=== PATIENT | female | born 1990 ===

== ENCOUNTER 2019-03-05 12:20 | Outpatient (CLI) | payer SELFPAY ==
[~2019-03-05] VITALS: Ht 157.5 cm; Wt 87.9 kg
--- NOTE | 2019-03-05 12:03 | NUR ---
SUKH DOVE presented to unit via amb from DR. CROWELL'S OFFICE with c/o C/O CONTRACTIONS,HX OF PRE-TERM LABOR. SUKH DOVE weighed, gowned, voided, and to bed. EFHM and TOCO applied, VS taken. SUKH DOVE oriented to bed controls, call light, TV, heat, and A/C controls.
[2019-03-05 12:18] VITALS: BP 126/66
[2019-03-05 12:30] VITALS: BP 126/66
[2019-03-05 13:01] VITALS: BP 111/66
[2019-03-05 13:06] LABS: BILIRUBIN,URINE NEGATIVE (NEGATIVE); CLARITY,URINE CLEAR; COLOR,URINE YELLOW; GLUCOSE, URINE (UA) NEGATIVE (NEGATIVE); KETONES,URINE NEGATIVE (NEGATIVE); LEUKOCYTE ESTERASE ,URINE 1+ (NEGATIVE); NITRITE,URINE NEGATIVE (NEGATIVE); PROTEIN,URINE NEGATIVE (NEGATIVE)
[2019-03-05] MEDS ORDERED: PREN1TAB79 PO ×2 (13:07)
[2019-03-05] MEDS ORDERED: FAMO-119 PO ×2 (13:07)
[2019-03-05 13:19] LABS: WBC,URINE 0-2 /HPF
[2019-03-05 13:20] LABS: AMORPHOUS SEDIMENT,UR RARE AMOR PHOSPHATE /LPF; BACTERIA,URINE MODERATE /HPF; SQUAMOUS EPITHELIAL CELL,UR 0-2 /HPF
[2019-03-05] MEDS ORDERED: LACTATED RINGERS 1,000 ML IV SCH ×2 (14:30)
--- NOTE | 2019-03-05 14:45 | NUR ---
DR. CROWELL NOTIFIED OF CERVICAL EXAM AND UA RESULTS.
--- NOTE | 2019-03-05 15:00 | NUR ---
ORDER TO ALLOW PT TO EAT. SANDWICH TRAY SERVED.
--- NOTE | 2019-03-05 15:20 | NUR ---
MONITOR TRACING SENT TO DR. CROWELL.
--- NOTE | 2019-03-05 15:41 | Diagnostic Imaging Report ---
INDICATION: Contractions and fundal height discrepancy. TECHNIQUE: Multiple real-time grayscale images were obtained over the gravid uterus. COMPARISON: None. FINDINGS: There is a single live fetus in a cephalic presentation. heart rate was recorded at 143 BPM. Placenta is anterior. Amniotic fluid volume is normal. No gross abnormalities are seen. Biometrical measurements are as follows: Biparietal 7.86 cm, age 31 weeks 4 days. Head circumference 29.27 cm, age 32 weeks 3 days. Abdominal circumference 27.13 cm, age 31 weeks 2 days. Femur length 5.91 cm, age 30 weeks 6 days. Sonographic estimate age: 31 weeks 4 days. Sonographic estimated date of delivery: 05/03/2019. Estimated Weight: 1725 gm (+/- 252 gm). LMP percentile: 98%. heart rate: 143 beats per minute. number: 1 of 1. IMPRESSION: Single live IUP of 31 to 32 weeks gestational age with estimated date of confinement sonographically of 05/03/2019. Dictated by: Dictated on workstation # [id number]
[2019-03-05 16:50] VITALS: BP 111/56
--- NOTE | 2019-03-05 17:09 | NUR ---
CALLED DR. CROWELL WITH UPDATE REGARDING DECREASE IN CONTRACTIONS AND CERVICAL EXAM UNCHANGED. ORDERS RECEIVED FOR BETAMETHASONE, AMPICILLIN RX FOR UTI, AND DISCHARGE. PLAN OF CARE REVIEWED WITH PT.
[2019-03-05] MEDS ORDERED: BETAMETHASONE ACE/NA PHOS 6 MG/ML (CELESTONE SOLUSPAN) ONE (17:17)
--- NOTE | 2019-03-05 17:20 | NUR ---
IV D/C'ED. SITE CLEAR.
--- NOTE | 2019-03-05 17:27 | NUR ---
BETAMETHASONE 12 MG IM IN RIGHT VG SITE. SITE CLEAR. PT HAS TO CALL FOR A RIDE HOME.
[2019-03-05] MEDS ORDERED: BETAMETHASONE ACE/NA PHOS 6 MG/ML (CELESTONE SOLUSPAN) IM SCH ×2 (17:30)
[2019-03-05] MEDS ORDERED: AMOX500C2 PO ×2 (17:37)
--- NOTE | 2019-03-05 18:15 | NUR ---
DISCHARGE INSTRUCTIONS REVIEWED WITH COPY TO PT. RX CALLED TO [facility] FOR AMPICILLIN. STATES UNDERSTANDING OF ALL INSTRUCTIONS AND NEED TO F/U TOMORROW FOR SECOND BETAMETHASONE SHOT.
[2019-03-05 18:45] VITALS: BP 111/56
--- NOTE | 2019-03-05 18:45 | NUR ---
DISMISSED AMB FROM [facility] IN STABLE CONDITION ACC BY SPOUSE.
--- NOTE | 2019-03-08 08:03 | Physician Query-Final Dx ---
Clinic Account Progress/Dx Physician Query: Please give diagnosis Please include # weeks gestation Date of Service Mar 05, 2019 at 12:20 JOYCE JARRETT Mar 08, 2019 08:02
== END 2019-03-05 18:45 | disposition home or self-care (01) ==
LOC: WSo 12:20 → LDRP 12:22 → WSo 18:45
PROVIDERS: ATTEND Family Medicine
DX: O62.9 Abnormality of forces of labor, unspecified (principal); O26.893 Other specified pregnancy related conditions, third trimester; Z3A.31 31 weeks gestation of pregnancy
CPT/HCPCS: 76805; 81000; 87088; 96360; 96361; 96372; 99214

== ENCOUNTER 2019-03-06 17:18 | Outpatient (CLI) | payer SELFPAY ==
--- NOTE | 2019-03-06 17:00 | NUR ---
Pt ambulates to unit for repeat steroid shot as ordered by Dr Julio yesterday. To waiting room at this time. Rn registering pt to ED
[~2019-03-06 17:18] MED LIST: AMOX500C2 PO; FAMO-119 PO; PREN1TAB79 PO
[2019-03-06] MEDS ORDERED: BETAMETHASONE ACE/NA PHOS 6 MG/ML (CELESTONE SOLUSPAN) ONE (17:28)
--- NOTE | 2019-03-06 17:35 | NUR ---
Pt to room 315. 1737 shot given see emar
--- NOTE | 2019-03-06 17:40 | NUR ---
Pt ambulates self off unit to private vehicle with belongings in hand.
[2019-03-07] MEDS ORDERED: BETAMETHASONE ACE/NA PHOS 6 MG/ML (CELESTONE SOLUSPAN) IM SCH (09:00)
== END 2019-03-06 17:40 | disposition home or self-care (01) ==
LOC: WSo 17:18
PROVIDERS: ATTEND Family Medicine
DX: O99.89 Other specified diseases and conditions complicating pregnancy, childbirth and the puerperium (principal); Z3A.00 Weeks of gestation of pregnancy not specified
CPT/HCPCS: 96372

== ENCOUNTER 2019-04-26 10:24 | Outpatient (CLI) | payer SELFPAY ==
[~2019-04-26] VITALS: Ht 157 cm; Wt 92.0 kg
--- NOTE | 2019-04-26 10:09 | NUR ---
SUKH DOVE presented to unit via ambulatory from home, accompanied by , with c/o CONTRACTIONS. SUKH DOVE weighed, gowned, voided, and to bed. EFHM and TOCO applied, VS taken. SUKH DOVE oriented to bed controls, call light, TV, heat, and A/C controls.
[2019-04-26 10:43] LABS: BILIRUBIN,URINE NEGATIVE (NEGATIVE); CLARITY,URINE CLEAR; COLOR,URINE YELLOW; GLUCOSE, URINE (UA) NEGATIVE (NEGATIVE); KETONES,URINE NEGATIVE (NEGATIVE); LEUKOCYTE ESTERASE ,URINE 1+ (NEGATIVE); NITRITE,URINE NEGATIVE (NEGATIVE); PH,URINE 6.5 (5-9); PROTEIN,URINE NEGATIVE (NEGATIVE)
[2019-04-26 10:51] VITALS: BP 119/73
[2019-04-26 10:53] LABS: BACTERIA,URINE FEW /HPF
[2019-04-26 11:00] VITALS: BP 119/73
[2019-04-26] MEDS ORDERED: METF-397 PO (12:08)
[2019-04-26 13:45] VITALS: BP 111/59
--- NOTE | 2019-04-26 15:20 | NUR ---
Dismissal instructions reviewed with patient. States understanding. Patient appears stable. Not in labor.
--- NOTE | 2019-04-26 15:25 | NUR ---
Dismissed ambulatory to home with at side, from labor/delivery unit. To return as needed. Follow up with Dr. Julio on Friday.
--- NOTE | 2019-04-27 08:27 | Physician Query-Final Dx ---
JOYCE JARRETT 04/27/19 0827: Clinic Account Progress/Dx Physician Query: Please give diagnosis Please include # weeks gestation Date of Service Apr 26, 2019 at 10:24 BRANDEN GUDINO DO 04/28/19 0838: Clinic Account Progress/Dx DIAGNOSIS: Diagnosis 37w6d contractions, not in active labor JOYCE JARRETT Apr 27, 2019 08:27 BRANDEN GUDINO DO Apr 28, 2019 08:38
== END 2019-04-26 15:25 | disposition home or self-care (01) ==
LOC: WSo 10:24 → LDRP 10:27 → WSo 15:25
PROVIDERS: ATTEND Family Medicine
DX: O62.9 Abnormality of forces of labor, unspecified (principal); Z3A.37 37 weeks gestation of pregnancy
CPT/HCPCS: 81000; 87088; 99213

== ENCOUNTER 2019-04-28 16:04 | Inpatient (IN) | payer OTHER ==
[2019-04-28] VITALS (21 sets, daily range): BP systolic 100–132; BP diastolic 53–77
--- NOTE | 2019-04-28 15:49 | NUR ---
SUKH DOVE presented to unit via ambulation, accompanied by family,for direct admit for labor. Pt. weighed, gowned, voided, and to bed. EFHM and TOCO applied, VS taken. Pt. oriented to bed controls, call light, TV, heat, and A/C controls.
[~2019-04-28 16:04] MED LIST changes: +METF-397 PO
[2019-04-28] MEDS ORDERED: NS IV 1000 ML 1,000 ML ONE (16:11)
[2019-04-28] MEDS ORDERED: NS IV 1000 ML 1,000 ML IV SCH (16:14)
--- NOTE | 2019-04-28 16:30 | NUR ---
report received from PRITI Rodas. care assumed of pt.
[2019-04-28 16:45] LABS: BASOPHILS % (AUTO) 0 % (0-10); EOSINOPHILS # (AUTO) 0.1 10^3/uL (0.0-0.3); EOSINOPHILS % (AUTO) 1 % (0-10); HEMATOCRIT 35 % (35-52); HEMOGLOBIN 11.1 G/DL (11.5-16.0); LYMPHOCYTES # (AUTO) 1.8 X 10^3 (1.0-4.0); LYMPHOCYTES % (AUTO) 24 % (12-44); MEAN CORPUSCULAR HEMOGLOBIN 25 PG (25-34); MEAN CORPUSCULAR HGB CONC 32 G/DL (32-36); MEAN CORPUSCULAR VOLUME 79 FL (80-99); MEAN PLATELET VOLUME 11.2 FL (7.4-10.4); MONOCYTES # (AUTO) 0.5 X 10^3 (0.0-1.0); MONOCYTES % (AUTO) 6 % (0-12); NEUTROPHILS # (AUTO) 5.1 X 10^3 (1.8-7.8); NEUTROPHILS % (AUTO) 69 % (42-75); PLATELET COUNT 295 10^3/uL (130-400); RED CELL DISTRIBUTION WIDTH 15.7 % (10.0-14.5); WHITE BLOOD COUNT 7.4 10^3/uL (4.3-11.0)
--- NOTE | 2019-04-28 17:29 | NUR ---
anesthesia notified of pt's request for epidural placement.
[2019-04-28] MEDS ORDERED: SUFENTA 0.6MCG/ML BUPIVA 0.125 100 ML ONE (17:42)
[2019-04-28] MEDS ORDERED: BUPIVACAINE 0.25% 30 ML (SENSORCAINE) VIAL ONE (17:56)
[2019-04-28] MEDS ORDERED: fentaNYL INJECTION 100 MCG/2 ML AMP ONE ×2 (17:56→19:43)
[2019-04-28] MEDS ORDERED: LACTATED RINGERS 1,000 ML IV SCH (18:37)
[2019-04-28] MEDS ORDERED: diphenhydrAMINE 50 MG/ML INJ (BENADRYL) IV PRN (18:45)
[2019-04-28] MEDS ORDERED: NALOXONE 0.4 MG/ML 1 ML (NARCAN) VIAL IV PRN ×2 (18:45)
[2019-04-28] MEDS ORDERED: METOCLOPRAMIDE INJ 10 MG/2 ML (REGLAN) IV PRN (18:45)
[2019-04-28] MEDS ORDERED: ONDANSETRON 4 MG/2 ML (SDV) Z0FRAN IV PRN (18:45)
[2019-04-28] MEDS ORDERED: EPIDURAL (SUFENTA 0.6MCG/ML BUPIVA 0.125%) 100 ML BAG EPI PRN (18:45)
--- NOTE | 2019-04-28 19:20 | NUR ---
RN at bedside for introduction from previous shift and to discuss POC.
--- NOTE | 2019-04-28 19:26 | History & Physical-OB ---
OB - Chief Complaint & HPI Date/Time Date of Admission: Date of Admission: Apr 28, 2019 at 16:04 Date seen by a Provider: Apr 28, 2019 Time Seen by a Provider: 18:45 Chief Complaint/History OB-Reason for Admission/Chief: Onset of Labor Hx : 2 Hx Para: 1101 Expected Date of Delivery: May 11, 2019 Gestational Age in Weeks: 38 Gestational Age in Days: 1 History of Labs AB positive, antibody neg. RPR neg. GBS neg. Allergies and Home Medications Allergies Coded Allergies: No Known Drug Allergies (Unverified , 03/05/19) Home Medications Famotidine 20 Mg Tablet, 20 MG PO BID, (Reported) Metformin HCl 500 Mg Tablet, 500 MG PO DAILY, (Reported) Vit W-Ca,Fe,FA(<1 mg) 1 Each Tablet, 1 EACH PO DAILY, (Reported) Patient Home Medication List Home Medication List Reviewed: Yes OB - History Hx of Present Care: Yes Ultrasounds: Normal mid trimester US Obstetrical Complications: Gestational Diabetes Other Concerns: GDMA2 on metformin, Weekly BPPs have been normal, BPP on 04/27 with DAVID 14 and EFW [id number]. Information Induced Hypertension: No Maternal Gestational Diabetes: Yes Hemorrhage: No Obstetrical History Hx : 3 Hx Para: 1 Hx # Term Pregnancies: 1 Hx # Pregnancies: 1 Number of Living Children: 1 Delivery History Hx Dystocia: No Hx Forceps Assisted Delivery: No Hx Vacuum Extraction Assisted: No Hx Placenta Abnormality: No Hx Distress: No Hx Large For Gestational Age I: No Hx Small for Gestational Age I: No Hx Section: No Hx Vaginal Delivery Post C-Sec: No Hx Blood Disorders: No Adverse Rxn to Tranfusion: No Patient Past Medical History PMHx: Asthma Depression SurgHx: Jaw surgery Social History/Family History HIV/AIDS: No Recent Infectious Disease Expo: No Sexually Transmitted Disease: No Alcohol Use: Denies Use Recreational Drug Use: No Smoking Cessation: Never smoker 2nd Hand Smoke Exposure: No Immunizations Tetanus Booster (TDap): Less than 5yrs Date of Influenza Vaccine: Jan 05, 2019 Rubella: unknown RPR/VDRL: Negative GBS Status: Negative HBsAG: Unknown OB - Admission Exam Physical Exam Vitals: Vital Signs 04/28/19 16:24 Temp 36.6 Pulse 114 Resp 20 B/P (MAP) 132/77 (95) Pulse Ox 98 O2 Delivery Room Air HEENT: NCAT Abdomen: Gravid Extremities: Edema (trace) Cervical Dilatation: 8cm Effacement: 50% Station: Ballotable Membranes: Intact Heart Rate: 140's Accelerations: Accelerations Present Decelerations: No Decelerations Short Term Variability: Present Contractions on Admission: < 5 Minutes Apart Date/Time Contractions Began;: 04/27 budget record clerk Frequency of Contractions: every 5 minutes Labs Laboratory Tests Test 04/28/19 16:08 04/28/19 17:51 Range/Units White Blood Count 7.4 4.3-11.0 10^3/uL Red Blood Count 4.42 4.35-5.85 10^6/uL Hemoglobin 11.1 L 11.5-16.0 G/DL Hematocrit 35 35-52 % Mean Corpuscular Volume 79 L 80-99 FL Mean Corpuscular Hemoglobin 25 25-34 PG Mean Corpuscular Hemoglobin Concent 32 32-36 G/DL Red Cell Distribution Width 15.7 H 10.0-14.5 % Platelet Count 295 130-400 10^3/uL Mean Platelet Volume 11.2 H 7.4-10.4 FL Neutrophils (%) (Auto) 69 42-75 % Lymphocytes (%) (Auto) 24 12-44 % Monocytes (%) (Auto) 6 0-12 % Eosinophils (%) (Auto) 1 0-10 % Basophils (%) (Auto) 0 0-10 % Neutrophils # (Auto) 5.1 1.8-7.8 X 10^3 Lymphocytes # (Auto) 1.8 1.0-4.0 X 10^3 Monocytes # (Auto) 0.5 0.0-1.0 X 10^3 Eosinophils # (Auto) 0.1 0.0-0.3 10^3/uL Basophils # (Auto) 0.0 0.0-0.1 10^3/uL Glucometer 99 70-110 MG/DL OB - Assessment/Plan/Diagnosis Assessment Assessment: active labor, other (GDMA2) Admission Dx Active labor at 38 weeks gestation GDMA2 Compound presentation- hand/vertex Admission Status: Inpatient Order (span 2 midnights) Reason for Inpatient Admission: Labor, delivery and course Plan Plan: Expectant Management Other Plan GDMA2- finger stick blood glucose in the 90s first two checks Compound presentation with hand/vertex- had spontaneous high rupture/leaking fluid after cervical exam, but remains with bulging bag and ballotable head, will sit up to encourage head descent and monitor closely. Residential Designer plant operations engineer notified. RUPERTO CROWELL MD Apr 28, 2019 19:25
--- NOTE | 2019-04-28 19:30 | NUR ---
1929-Tillman placed per RN. 1931-Dr. Julio in room to preform SVE. Initially hand presentation felt as verbalized per Then Cord felt below infants head. Verbalized per Dr. Julio. Pt. immediately placed into Trendelenburg position while Dr. Moctezuma hand remains in place holding pressure off of cord. Orders received to notify Dr. Hernandez. No distress noted on monitoring strip at this time. 1936-Dr. Julio communicated situation with Dr. hernandez via mobile phone held by this RN. Orders received to call crew in for STAT/emergent C section and to begin moving patient to OB OR. 1937-boat cleaning supervisor notified or need for STAT/emergent C Section. 1938-Verbal consent received for STAT/Emergent C section 1939-Pt. back to OB OR at this time. Dr. Julio remained on pt bed, preforming SVE to continue to hold pressure off cord. 1942-133 FHT Obtained per Doppler. Pre-Op meds given per this RN. 1941-Dianne GARCIA in OB OR at this time. 1943-135 FHT per Doppler. LR hung per OR tubing. 1945-Adrienne Ambrocio in OB OR at this time. 1947-Zulay Ren CRNA in OB OR at this time. 150 FHT per Doppler. 1949-Pt. prepped for surgery per Dr. Hernandez.
[2019-04-28] MEDS ORDERED: METOCLOPRAMIDE INJ 10 MG/2 ML (REGLAN) ONE (19:33)
[2019-04-28] MEDS ORDERED: CITRIC ACID/SOB CIT (BICITRA) 30 ML UDC ONE (19:33)
[2019-04-28] MEDS ORDERED: FAMOTIDINE 20MG/2ML IV (PEPCID) ONE (19:34)
[2019-04-28] MEDS ORDERED: KETAMINE/NaCl 50 MG/5 ML SYRINGE (ED ONLY) ONE (19:46)
[2019-04-28] MEDS ORDERED: OXYTOCIN PRE-MIX DRIP 500 ML IV ONE (19:47)
[2019-04-28] MEDS ORDERED: MIDAZOLAM 2 MG/2 ML (VERSED) VIAL ONE (19:51)
[2019-04-28] MEDS ORDERED: BUPIVACAINE 0.5% 30 ML (SENSORCAINE) VIAL ONE (20:18)
[2019-04-28] MEDS ORDERED: proPOfol 200 MG/20 ML (DIPRIVAN) VIAL IV ONE (20:19)
--- NOTE | 2019-04-28 20:20 | Labor Progress Note ---
Labor Progress Note Labor Progress Note Date Seen by Provider: Apr 28, 2019 Time Seen by Provider: 19:32 Subjective: Pt reported gush of fluid Objective: Cervical exam: /-3 Consistency: soft Position: anterior Presentation: compound, vertex and hand noted initially, hand moved to maternal right, when reassessing across vertex, noted prolapsed cord at maternal left heart tones: 135 beats per minute, moderate variability, no decels Tocometer: 2 ctx/10 minutes Assessment/Plan: Tracy Mason is a 28 /Para 3 / 1,Gestational Age (wks) 38 found to have cord prolapse at 1733, bed placed in head down position while I continued to elevate cord with my hand, nurse called Dr. Deleon at 1734 and immediately thereafter we called for STAT , while I remained with my hand supporting the cord until was delivered. Vitals - Labs Vital Signs - I&O Vital Signs Date Time Temp Pulse Resp B/P (MAP) Pulse Ox O2 Delivery O2 Flow Rate FiO2 04/28/19 16:24 36.6 114 20 132/77 (95) 98 Room Air 04/28/19 16:00 36.6 104 18 98 Room Air Labs Laboratory Tests 04/28/19 16:08: White Blood Count 7.4, Red Blood Count 4.42, Hemoglobin 11.1L, Hematocrit 35, Mean Corpuscular Volume 79L, Mean Corpuscular Hemoglobin 25, Mean Corpuscular Hemoglobin Concent 32, Red Cell Distribution Width 15.7H, Platelet Count 295, Mean Platelet Volume 11.2H, Neutrophils (%) (Auto) 69, Lymphocytes (%) (Auto) 24, Monocytes (%) (Auto) 6, Eosinophils (%) (Auto) 1, Basophils (%) (Auto) 0, Neutrophils # (Auto) 5.1, Lymphocytes # (Auto) 1.8, Monocytes # (Auto) 0.5, Eosinophils # (Auto) 0.1, Basophils # (Auto) 0.0 04/28/19 17:51: Glucometer 99 04/28/19 19:16: Glucometer 94 RUPERTO CROWELL MD Apr 28, 2019 20:20
[2019-04-28] MEDS ORDERED: D5 LR IV SOLUTION 1,000 ML IV SCH (20:23)
[2019-04-28] MEDS ORDERED: MEASLES,MUMPS,RUBELLA 1 EA INJ SC ONE (20:30)
[2019-04-28] MEDS ORDERED: TETANUS,DIPTH,PERTUSS P/F (BOOSTRIX) 0.5 ML VIAL IM ONE (20:30)
[2019-04-28] MEDS ORDERED: ONDANSETRON 4 MG/2 ML (SDV) Z0FRAN IVP PRN (20:30)
[2019-04-28] MEDS ORDERED: DEXAMETHASONE 10 MG/ML (DECADRON) 1 ML VIAL ONE (20:35)
--- NOTE | 2019-04-28 20:44 | Diagnostic Imaging Report ---
INDICATION: Emergency FINDINGS: Supine view of the abdomen demonstrates an object over the upper abdomen which was said to be external by the technologist. No other foreign bodies are present. IMPRESSION: Negative abdomen for foreign body. Dictated by: Dictated on workstation # [id number]
[2019-04-28] MEDS ORDERED: DOCUSATE SODIUM 100 MG (COLACE) CAP PO SCH (21:00)
[2019-04-28] MEDS: OXYTOCIN PRE-MIX DRIP 500 ML IV SCH (21:05)
[2019-04-28] MEDS ORDERED: CATHETER FLUSH 10 ML SYR IV SCH (22:00)
--- NOTE | 2019-04-28 22:00 | NUR ---
Pt. transferred to PP room 313 via bed, accompanied by staff. Pt. oriented to room, call light, and thermostat. SCDs applied and turned on, fresh ice water provided. PP folder given and explained. No questions or concerns voiced at this time. will continue to monitor.
[2019-04-28] MEDS: KETOROLAC 30 MG/ML VIAL IVP SCH (22:32)
[2019-04-28] MEDS: DOCUSATE SODIUM 100 MG (COLACE) CAP PO SCH (22:32)
[2019-04-28] MEDS ORDERED: FAMOTIDINE 20MG/2ML IV (PEPCID) IV ONE (23:45)
[2019-04-28] MEDS ORDERED: CITRIC ACID/SOB CIT (BICITRA) 30 ML UDC PO ONE (23:45)
[2019-04-28] MEDS ORDERED: METOCLOPRAMIDE INJ 10 MG/2 ML (REGLAN) IV ONE (23:45)
--- NOTE | 2019-04-29 01:30 | NUR ---
This RN assisted pt. up to bathroom. Pt. ambulated without difficulty with standby assist. Positive void noted.
[2019-04-29] MEDS: OXYTOCIN PRE-MIX DRIP 500 ML IV SCH (01:32)
--- NOTE | 2019-04-29 02:10 | NUR ---
Infant taken to nursery for bath at this time. Pt. ambulated to nursery to without difficulty.
--- NOTE | 2019-04-29 03:03 | OPERATIVE REPORT ---
DATE OF SERVICE: 04/28/2019 PREOPERATIVE DIAGNOSES: Term at 39 weeks' gestation in labor with prolapsed cord. POSTOPERATIVE DIAGNOSIS: Term at 39 weeks' gestation in labor with prolapsed cord. OPERATIVE PROCEDURE: Emergent primary low transverse delivery of a viable with Apgars of 9 and 10 at 1 and 5 minutes respectively, weight 7 pounds. Cord blood pH is pending. time of 1954, he is a male infant. OPERATIVE DESCRIPTION: With the patient in the supine position with Dr. Julio at the bedside elevating the head off of the prolapsed cord, the heart rate was being monitored continuously and was in the 130 to 140s. The patient had an epidural that was effective. Anesthesia was on hand, dose the epidural as we prepped and draped the patient. The epidural was satisfactory for the emergent . With the patient prepped and draped in the usual fashion for abdominal surgery, a Pfannenstiel incision made through skin with scalpel. The patient's abdomen entered in the usual manner. Bladder retractor placed in position. Clean scalpel used to make a 4 cm transverse lower uterine segment incision that was extended bluntly. Minimal fluid was released on hysterotomy. Acosta forceps were applied to facilitate the delivery of the male infant. The infant had Apgars and stats as noted above. The infant was bulb suctioned on delivery of the head and again on completion of delivery. Umbilical cord was doubly clamped and cut, and the passed to the pediatric nurse in attendance for delivery. Cord bloods were obtained. Placenta delivered spontaneously Cody. It was normal with a 3-vessel cord. The uterus was exteriorized and interior wiped clean with a wet laparotomy sponge. Uterine incision was then closed with running locked suture of 2-0 Vicryl. Hemostasis was complete. The uterus was returned to abdominal cavity. All blood clot and debris were removed from the abdominal cavity. Sponge and needle counts correct and hemostasis assured. Anterior parietal peritoneum was closed with running suture of 2-0 Vicryl. Rectus muscles were closed with that suture as well. The rectus fascia was closed with 2-0 Vicryl, subcutaneous tissue was closed with 2-0 Vicryl and the skin was stapled. An x-ray of the operative field was obtained prior to complete closure to ascertain whether any instruments or materials were left behind that was reported to be negative. Sponge and needle counts correct. Estimated blood loss was around 500 mL. The patient tolerated the procedure well and was transferred to recovery room in stable condition. The had remained near bedside with the father. Job ID: [id number] DocumentID: [id number] Dictated Date: 04/28/2019 20:31:05 Aemt Date: 04/29/2019 03:02:11 Dictated By: LILLIAM HAWKINS MD
[2019-04-29] MEDS: KETOROLAC 30 MG/ML VIAL IVP SCH (04:21)
[2019-04-29] MEDS: oxyCODONE/APAP 10/325MG (PERCOCET 10) TABLET PO PRN ×3 (04:24→20:37)
[2019-04-29 04:25] VITALS: BP 108/64
[2019-04-29] MEDS: IBUPROFEN 800 MG (MOTRIN) TAB PO SCH ×4 (05:04→23:17)
--- NOTE | 2019-04-29 08:01 | Progress Note ---
Standard Progress Note Progress Notes/Assess & Plan Date Seen by a Provider: Apr 29, 2019 Time Seen by a Provider: 08:00 Progress/Assessment & Plan This patient is without complaint. She is ambulating, voiding, tolerating oral intake well has good pain control. Patient denies chest pain, denies shortness of breath, denies nausea vomiting, and denies headache. Vital Signs Date Time Temp Pulse Resp B/P (MAP) Pulse Ox O2 Delivery O2 Flow Rate FiO2 04/29/19 04:25 36.3 81 16 108/64 (79) 99 Room Air 04/28/19 23:30 36.4 77 16 107/65 (79) 99 Room Air 04/28/19 22:40 36.2 82 16 107/72 (84) 98 Room Air 04/28/19 22:10 36.0 80 16 102/66 (78) 98 Room Air 04/28/19 21:45 Room Air 04/28/19 21:45 35.9 20 100/72 (81) 96 Room Air 04/28/19 21:30 Room Air 04/28/19 21:30 35.9 16 107/63 (78) 96 Room Air 04/28/19 21:15 Room Air 04/28/19 21:15 35.4 16 110/76 (87) 97 Room Air 04/28/19 21:00 Room Air 04/28/19 21:00 36.3 14 102/70 (81) 97 Room Air 04/28/19 19:30 86 18 110/62 (78) 100 Room Air 04/28/19 19:15 104 18 101/57 (72) 99 Room Air 04/28/19 19:00 99 18 104/53 (70) 99 Room Air 04/28/19 18:45 102 18 111/61 (78) 100 Room Air 04/28/19 18:35 96 18 114/63 (80) 100 Room Air 04/28/19 18:30 93 18 110/59 (76) 98 Room Air 04/28/19 18:25 90 18 112/63 (79) 98 Room Air 04/28/19 18:20 95 18 116/64 (81) 98 Room Air 04/28/19 18:15 85 18 118/61 (80) 98 Room Air 04/28/19 18:10 97 18 120/64 (82) 98 Room Air 04/28/19 18:05 86 18 127/56 (79) 98 Room Air 04/28/19 17:51 80 18 112/68 (83) Room Air 04/28/19 16:24 36.6 114 20 132/77 (95) 98 Room Air 04/28/19 16:00 36.6 104 18 98 Room Air I & O 04/29/19 07:00 Intake Total 1300 ml Output Total 850 ml Balance 450 ml Vital signs are stable. Patient is afebrile. The abdomen is benign. The fundus is firm below the umbilicus and nontender. The surgical incision is clean dry and intact. Extremities show no clubbing or cyanosis. There is no Homans sign. Assessment and plan postoperative day number 1 status post primary delivery performed emergently due to prolapsed umbilical cord. Patient is doing well and will have routine convalescence care. LILLIAM HAWKINS MD Apr 29, 2019 08:01
[2019-04-29] MEDS ORDERED: IBUP-1780 PO (08:03)
[2019-04-29] MEDS ORDERED: DCS100C PO (08:03)
[2019-04-29] MEDS ORDERED: OXYC1TAB12 PO (08:03)
--- NOTE | 2019-04-29 08:04 | Discharge Inst-Surgical ---
Discharge Inst-Surgical Depart Medication/Instructions New, Converted or Re-Newed RX: RX on Chart Consults/Follow Up Patient Instructions: As directed Orders & Referrals Follow Up Appt: RTC with me on Tuesday, April 30, 2019 at 930 a.m. or on Friday, May 03, 2019 between 8 a.m. at 4 p.m. for incision check. Call to make follow up appt. for patient in [address] Julio Wound Care: Remove sruthi, apply benzoin and steri strips. Activity Per routine post instructions. Please call in RX to patient pharmacy. Diet as tolerated Patient may shower or tub bathe as desired. Continue home meds Activity Activity as Tolerated: No Diet Discharge Diet: No Restrictions LILLIAM HAWKINS MD Apr 29, 2019 08:04
[2019-04-29] MEDS: DOCUSATE SODIUM 100 MG (COLACE) CAP PO SCH ×2 (08:15→19:49)
--- NOTE | 2019-04-29 08:15 | NUR ---
initial shift assessment completed, see interventions for further. abd incision GEMMA with sruthi D/I. POC reviewed, states understanding.
--- NOTE | 2019-04-29 09:30 | NUR ---
ambulating in hallways with @ side.
--- NOTE | 2019-04-29 10:40 | NUR ---
up to shower.
[2019-04-29 13:45] VITALS: BP 113/56
--- NOTE | 2019-04-29 14:40 | Anesthesia-Regional Post-Op ---
Regional Patient Condition Mental Status: Alert, Oriented x3 Circulation: Same as Pre-Op Headache: Absent Sensation: Full Recovery Motor Block: Absent Post Op Complications Complications None Follow Up Care/Instructions Patient Instructions None needed. Anesthesia/Patient Condition Patient is doing well, no complaints, stable vital signs, no apparent adverse anesthesia problems. CHULA CHINCHILLA DO Apr 29, 2019 14:40
[2019-04-29 17:18] VITALS: BP 106/51
--- NOTE | 2019-04-29 17:21 | NUR ---
ambulating in hallways with s/o @ side
[2019-04-29] MEDS ORDERED: SIMETHICONE 80 MG (MYLICON) CHEW PO SCH (19:00)
--- NOTE | 2019-04-29 19:15 | NUR ---
report given to next shift.
--- NOTE | 2019-04-29 19:58 | NUR ---
pt resting in bed. assessment completed. pt denies any needs at this time. will continue to monitor.
[2019-04-29 21:00] VITALS: BP 105/59
[2019-04-30 01:30] VITALS: BP 102/56
[2019-04-30] MEDS: oxyCODONE/APAP 10/325MG (PERCOCET 10) TABLET PO PRN ×2 (01:58→12:26)
[2019-04-30] MEDS: IBUPROFEN 800 MG (MOTRIN) TAB PO SCH ×2 (05:15→12:26)
--- NOTE | 2019-04-30 07:56 | Progress Note ---
Standard Progress Note Progress Notes/Assess & Plan Date Seen by a Provider: Apr 30, 2019 Time Seen by a Provider: 07:55 Progress/Assessment & Plan This patient is without complaint. She is ambulating, voiding, tolerating oral intake well has good pain control. Patient denies chest pain, denies shortness of breath, denies nausea vomiting, and denies headache. Vital Signs Date Time Temp Pulse Resp B/P (MAP) Pulse Ox O2 Delivery O2 Flow Rate FiO2 04/29/19 04:25 36.3 81 16 108/64 (79) 99 Room Air 04/28/19 23:30 36.4 77 16 107/65 (79) 99 Room Air 04/28/19 22:40 36.2 82 16 107/72 (84) 98 Room Air 04/28/19 22:10 36.0 80 16 102/66 (78) 98 Room Air 04/28/19 21:45 Room Air 04/28/19 21:45 35.9 20 100/72 (81) 96 Room Air 04/28/19 21:30 Room Air 04/28/19 21:30 35.9 16 107/63 (78) 96 Room Air 04/28/19 21:15 Room Air 04/28/19 21:15 35.4 16 110/76 (87) 97 Room Air 04/28/19 21:00 Room Air 04/28/19 21:00 36.3 14 102/70 (81) 97 Room Air 04/28/19 19:30 86 18 110/62 (78) 100 Room Air 04/28/19 19:15 104 18 101/57 (72) 99 Room Air 04/28/19 19:00 99 18 104/53 (70) 99 Room Air 04/28/19 18:45 102 18 111/61 (78) 100 Room Air 04/28/19 18:35 96 18 114/63 (80) 100 Room Air 04/28/19 18:30 93 18 110/59 (76) 98 Room Air 04/28/19 18:25 90 18 112/63 (79) 98 Room Air 04/28/19 18:20 95 18 116/64 (81) 98 Room Air 04/28/19 18:15 85 18 118/61 (80) 98 Room Air 04/28/19 18:10 97 18 120/64 (82) 98 Room Air 04/28/19 18:05 86 18 127/56 (79) 98 Room Air 04/28/19 17:51 80 18 112/68 (83) Room Air 04/28/19 16:24 36.6 114 20 132/77 (95) 98 Room Air 04/28/19 16:00 36.6 104 18 98 Room Air I & O 04/29/19 07:00 Intake Total 1300 ml Output Total 850 ml Balance 450 ml Vital signs are stable. Patient is afebrile. The abdomen is benign. The fundus is firm below the umbilicus and nontender. The surgical incision is clean dry and intact. Extremities show no clubbing or cyanosis. There is no Homans sign. Assessment and plan postoperative day number 1 status post primary delivery performed emergently due to prolapsed umbilical cord. Patient is doing well and will have routine convalescence care. April 30, 2019 Patient is without complaints she is ambulating, voiding, tolerating oral intake well has good pain control. Patient is requesting discharge home. Vital Signs Date Time Temp Pulse Resp B/P (MAP) Pulse Ox O2 Delivery O2 Flow Rate FiO2 04/30/19 01:30 36.5 85 18 102/56 (71) 95 Room Air 04/29/19 21:00 36.5 80 16 105/59 (74) 97 Room Air 04/29/19 17:18 36.6 93 16 106/51 (69) 97 Room Air 04/29/19 13:45 36.6 75 16 113/56 (75) 94 Room Air Vital signs are stable. Patient is afebrile. Fundus is firm below the umbilicus and nontender. The surgical incision is clean dry and intact. Extremities show clubbing cyanosis. There is no Homans sign. Assessment and plan postoperative day number 2 status post primary delivery doing well. Plan is for discharge home with follow-up in clinic Final Diagnosis 39 week primary delivery LILLIAM HAWKINS MD Apr 30, 2019 07:56
[2019-04-30] MEDS ORDERED: OXYC1TAB12 PO (07:57)
[2019-04-30 08:15] VITALS: BP 114/56
[2019-04-30] MEDS: DOCUSATE SODIUM 100 MG (COLACE) CAP PO SCH (09:30)
--- NOTE | 2019-04-30 10:25 | NUR ---
sruthi dc's, benzoin and steri strips applied. am care supplies to room for pt to shower
--- NOTE | 2019-04-30 12:25 | NUR ---
Discharge instructions explained, signed and copy to patient. pt verbalized understanding of instructions and denied questions.
--- NOTE | 2019-04-30 12:44 | NUR ---
prescriptions called to pharmacy
--- NOTE | 2019-04-30 13:00 | NUR ---
Discharged to home with belongings. Ambulates self downstairs to private vehicle with belongings in hand.
--- OUTSIDE RECORDS SUMMARY | 2019-04-30 16:58 | XMS REPORT ---
Author Author Tracy HOWARD Organization [facility] Address [address] [place] [address] Care Team Providers Care Animal Caregiver Name Role Phone MARIYA HOWARD Unavailable PROBLEMS Type Condition ICD9-CM Code EOZ82-TF Code Onset Dates Condition S tatus SNOMED Code Problem Rhinitis, unspecified type J31.0 Act shabnam 06107223 Problem Rhinitis, unspecified type J31.0 Act shabnam [id number] ALLERGIES No Information ENCOUNTERS Encounter Location Date Diagnosis [facility] [id number] [place] [address] Feb, [address] [id number] Feb, Abnormal glucose affecting O99 .810 [facility] [address] [id number] [place] [address] Feb, Abnormal glucose affecting O99 .[address] [id number] Feb, Vaginal candidiasis B37.[address] [id number] Feb, Third trimester Z34.93 ; 28 we eks gestation of Z3A.28 ; Vaginal candidiasis B37.3 and Encounter for immunization Z23 [facility] [address] [facility] [place] [id number] Jan, [facility] [address] [facility] [place] [id number] Jan, Second trimester Z34.92 ; 26 weeks gestation of Z3A.26 and History of delivery, currently O09.219 [facility] [address] [facility] [id number] [place] [address] Jan, Frequency of urination R35.0 [facility] [address] [id number] [id number] Dec, Rhinitis, unspecified type J31.0 and Sor e throat J02.9 [facility] [address] [facility] [place] [id number] Aug, [facility] [id number] [place] [id number] Apr, Acne vulgaris L70.0 [address] [facility] [address] [id number] [id number] Jul, Sinusitis 473.9 and History of asthma V1 2.69 [facility] [address] [address] May, [facility] [address] [address] May, [facility] [address] [address] Jul, [facility] [address] [address] Jul, [facility] [address] [address] Feb, [facility] [address] [address] Feb, [facility] [address] [address] Feb, [facility] [address] [address] Feb, [facility] [address] [address] Feb, [facility] [address] [address] Feb, [facility] [address] [address] Feb, [facility] [address] [id number] [place] [address] Feb, [facility] [address] [id number] [place] [address] June, [facility] [address] [id number] [place] [address] May, [facility] [address] [id number] [place] [address] Apr, [facility] [address] [id number] [place] [address] Dec, [facility] [id number] [place] [address] Dec, [facility] [address] [id number] [place] [address] Dec, IMMUNIZATIONS No Known Immunizations SOCIAL HISTORY Never Assessed REASON FOR VISIT PLAN OF CARE VITAL SIGNS Height 62 in 2013-08-16 Weight 170.6 lbs 2013-08-16 Temperature 98.9 degrees Fahrenheit 2013-08-16 Heart Rate 88 bpm 2013-08-16 Respiratory Rate 18 2013-08-16 Blood pressure systolic 115 mmHg 2013-08-16 Blood pressure diastolic 74 mmHg 2013-08-16 MEDICATIONS Unknown Medications RESULTS No Results PROCEDURES No Known procedures INSTRUCTIONS MEDICATIONS ADMINISTERED No Known Medications MEDICAL (GENERAL) HISTORY Type Description Date Medical History asthma Surgical History double jaw repair 10/2016
--- OUTSIDE RECORDS SUMMARY | 2019-04-30 16:58 | XMS REPORT ---
Author Author Tracy Duggan Doctor Organization [facility] Address Unknown Phone Unavailable Care Team Providers Care Mainspring Former Arbor End Name Role Phone Migration, Doctor Unavailable Unavailable PROBLEMS Type Condition ICD9-CM Code RHI26-RO Code Onset Dates Condition S tatus SNOMED Code Problem Screening examination for venereal disease V74.5 Active 277900139 Problem Leukorrhea, not specified as infective 623.5 Active 663712151 Problem Urinary tract infection, site not specified 599.0 Active 39902036 Problem Counseling on other sexually transmitted diseases V65.45 Active 792460697 Problem Family history of diabetes mellitus V18.0 Active 276591998 Problem Headache 784.0 Active 22637758 Problem Other specified disease of hair and hair follicles 704.8 Active 729034283 ALLERGIES No Information ENCOUNTERS Encounter Location Date Diagnosis [address] [id number] [id number] Apr, Acne vulgaris L70.[address] [id number] [id number] Jul, Sinusitis 473.9 and History of asthma V1 2.69 [facility] [address] [facility] [id number] [address] [place] [address] May, [facility] [address] [facility] [id number] [address] [place] [address] May, [facility] [address] [facility] [id number] [address] [place] [address] Jul, [facility] [address] [facility] [id number] [address] [place] [address] Jul, [facility] [address] [facility] [id number] [address] [place] [address] Feb, [facility] [address] [facility] [id number] [address] [place] [address] Feb, [facility] [address] [id number] [address] [place] [address] Feb, [facility] [address] [id number] [address] [place] [address] Feb, [facility] [address] [id number] [address] [place] [address] Feb, [facility] [address] [id number] [address] [place] [address] Feb, [facility] [address] [id number] [address] [place] [address] Feb, [facility] [address] [id number] [address] [place] [address] Feb, [facility] [address] [id number] [address] [place] [address] June, [facility] [address] [id number] [address] [place] [address] May, [facility] [address] [id number] [address] [place] [address] Apr, [facility] [address] [id number] [address] [place] [address] Dec, [facility] [address] [id number] [address] [place] [address] Dec, [facility] [address] [id number] [address] [place] [phone] Dec, IMMUNIZATIONS No Known Immunizations SOCIAL HISTORY Never Assessed REASON FOR VISIT EMR-[facility] PLAN OF CARE VITAL SIGNS MEDICATIONS No Known Medications RESULTS No Results PROCEDURES No Known procedures INSTRUCTIONS MEDICATIONS ADMINISTERED No Known Medications MEDICAL (GENERAL) HISTORY Type Description Date Medical History asthma
--- OUTSIDE RECORDS SUMMARY | 2019-04-30 16:58 | XMS REPORT | Continuity of Care Document ---
Author Organization Unknown Address Unknown Phone Unavailable Allergies Active Description Code Type Severity Reaction Onset Reported/Identified Relationship to Patient Clinical Status Yes No Known Drug Allergies [id number] Drug Allergy Unknown N/A 03/05/2019 Medications There is no data. Problems Date Dx Coded Attending Type Code Diagnosis Diagnosed By 03/05/2019 RUPERTO CROWELL MD, Ot O26.893 OT RELATED CONDITIONS, THIRD 03/05/2019 RUPERTO CROWELL MD Ot O62 .9 ABNORMALITY OF FORCES OF LABOR, UNSPECIF 03/05/2019 RUPERTO CROWELL MD Ot Z3A.31 31 WEEKS GESTATION OF 03/06/2019 RUPERTO CROWELL MD Ot O99.89 OT DISEASES AND CONDITIONS COMPL PREG/C 03/06/2019 RUPERTO CROWELL MD Ot Z3A.00 WEEKS OF GESTATION OF NOT SPEC 03/09/2019 RUPERTO CROWELL MD Ot O26.893 OT RELATED CONDITIONS, THIRD 03/09/2019 RUPERTO CROWELL MD Ot O62 .9 ABNORMALITY OF FORCES OF LABOR, UNSPECIF 03/09/2019 RUPERTO CROWELL MD Ot Z3A.31 31 WEEKS GESTATION OF 03/09/2019 RUPERTO CROWELL MD Ot O99.89 OT DISEASES AND CONDITIONS COMPL PREG/C 03/09/2019 RUPERTO CROWELL MD Ot Z3A.00 WEEKS OF GESTATION OF NOT SPEC 04/26/2019 BRANDEN GUDINO DO Ot O62.9 ABNORMALITY OF FORCES OF LABOR, UNSPECIF 04/26/2019 BRANDEN GUDINO DO Ot Z3A.37 37 WEEKS GESTATION OF Procedures There is no data. Results Test Result Range CULTURE, GENITAL - 02/05/19 00:00 CULTURE, GENITAL SEE NOTE NRG GC/CHLAMYDIA (SWAB OR URINE)-RAPID - 19:00 CHLAMYDIA TRACHOMATIS RNA, TMA NOT DETECTED NOT DETECTED NEISSERIA GONORRHOEAE RNA, TMA NOT DETECTED NOT DETECTED COMMENT NRG SUREPATH PAP RFX HPV mRNA E6/E7 - 19:00 CLINICAL INFORMATION: NRG LMP: 08/05/18 NRG PREV. PAP: NRG PREV. BX: NRG SOURCE: Cervix NRG STATEMENT OF ADEQUACY: NRG INTERPRETATION/RESULT: NRG ENDOSCOPY TECHNICAN: NRG COMMENT NRG GLUCOSE JJ 1 HOUR - 02/19/19 10:49 GLUCOSE, POSTPRANDIAL/ 1 HOUR 168 mg/dL See Note: CBC - 02/19/19 10:49 WHITE BLOOD CELL COUNT 7.0 Thousand/uL 3 .8-10.8 RED BLOOD CELL COUNT 4.22 Million/uL 3.8 0-5.10 HEMOGLOBIN 11.6 g/dL 11.7-15.5 HEMATOCRIT 35.2 % 35.0-45.0 MCV 83.4 fL 80.0-100.0 MCH 27.5 pg 27.0-33.0 MCHC 33.0 g/dL 32.0-36.0 RDW 12.6 % 11.0-15.0 PLATELET COUNT 317 Thousand/uL 140-400 MPV 10.8 fL 7.5-12.5 ABSOLUTE NEUTROPHILS 5173 cells/uL 1500- 7800 ABSOLUTE LYMPHOCYTES 1386 cells/uL 850-3 900 ABSOLUTE MONOCYTES 308 cells/uL 200-950 ABSOLUTE EOSINOPHILS 112 cells/uL 15-500 ABSOLUTE BASOPHILS 21 cells/uL 0-200 NEUTROPHILS 73.9 % NRG LYMPHOCYTES 19.8 % NRG MONOCYTES 4.4 % NRG EOSINOPHILS 1.6 % NRG BASOPHILS 0.3 % NRG SYPHILIS (RPR W/ REFLEX CONFIRMATION) - 02/19/19 10:49 RPR (DX) W/REFL TITER AND CONFIRMATORY TESTING NON-REACTIVE NON-REACTIVE Complete urinalysis with reflex to cultu re - 03/05/19 12:30 Urine color determination YELLOW NRG Urine clarity determination CLEAR NR G Urine pH measurement by test strip 7.0 5-9 Specific gravity of urine by test strip 1.015 1.016-1.022 Urine protein assay by test strip, semi-quantitative NEGATIVE NEGATIVE Urine glucose detection by automated test strip NE GATIVE NEGATIVE Erythrocytes detection in urine sediment by light micr oscopy NEGATIVE NEGATIVE Urine ketones detection by automated test strip NE GATIVE NEGATIVE Urine nitrite detection by test strip NEGATIVE NEGATIVE Urine total bilirubin detection by test strip NEGA TIVE NEGATIVE Urine urobilinogen measurement by automated test strip (mass/volume) 0.2 mg/dL < = 1.0 Urine leukocyte esterase detection by dipstick 1+ NEGATIVE Automated urine sediment erythrocyte cou nt by microscopy (number/high power field) NONE NRG Automated urine sediment leukocyte count by microscopy (number/high power field) [HPF] NRG Bacteria detection in urine sediment by light microsco py MODERATE NRG Squamous epithelial cells detection in u rine sediment by light microscopy 0-2 NRG Crystals detection in urine sediment by light microsco py PRESENT NRG Casts detection in urine sediment by light microscopy NONE NRG Mucus detection in urine sediment by light microscopy NEGATIVE NRG Complete urinalysis with reflex to culture YES NRG Amorphous sediment detection in urine sediment by ligh t microscopy RARE KELSEY PHOSPHATE NRG Bacterial urine culture - 03/05/19 12:30 Bacterial urine culture 3 OR MORE NRG COLONY COUNT 50,000 CFU/ML NRG FTX;REPORTABLE (GRAM POSITIVE) SUGGESTING PROBABLE NRG FREE TEXT ENTRY 2 COLLECTION CONTAMINATION WITH SK IN NRG CULTURE, URINE - 04/07/19 13:44 CULTURE, URINE, ROUTINE SEE NOTE NRG CULTURE, GROUP B STREP (VAGINAL) - 04/14 12:18 STREPTOCOCCUS, GROUP B CULTURE SEE NOTE NRG ANTIBODY SCREEN - 04/21/19 12:35 ANTIBODY SCREEN, RBC W/REFL ID, TITER AND AG NO ANTIBODIES DETECTED NRG Complete urinalysis with reflex to cultu re - 04/26/19 10:25 Urine color determination YELLOW NRG Urine clarity determination CLEAR NR G Urine pH measurement by test strip 6.5 5-9 Specific gravity of urine by test strip 1.020 1.016-1.022 Urine protein assay by test strip, semi-quantitative NEGATIVE NEGATIVE Urine glucose detection by automated test strip NE GATIVE NEGATIVE Erythrocytes detection in urine sediment by light micr oscopy NEGATIVE NEGATIVE Urine ketones detection by automated test strip NE GATIVE NEGATIVE Urine nitrite detection by test strip NEGATIVE NEGATIVE Urine total bilirubin detection by test strip NEGA TIVE NEGATIVE Urine urobilinogen measurement by automated test strip (mass/volume) 0.2 mg/dL < = 1.0 Urine leukocyte esterase detection by dipstick 1+ NEGATIVE Automated urine sediment erythrocyte cou nt by microscopy (number/high power field) NONE NRG Automated urine sediment leukocyte count by microscopy (number/high power field) [HPF] NRG Bacteria detection in urine sediment by light microsco py FEW NRG Squamous epithelial cells detection in u rine sediment by light microscopy 2-5 NRG Crystals detection in urine sediment by light microsco py NONE NRG Casts detection in urine sediment by light microscopy NONE NRG Mucus detection in urine sediment by light microscopy NEGATIVE NRG Complete urinalysis with reflex to culture NO NRG Bacterial urine culture - 04/26/19 10:25 Bacterial urine culture NG NRG Human immunodeficiency virus (HIV) type 1 and 2 antibody detection - 04/28/19 06:02 Serum HIV 1+2 antibody detection by immunoblot Non-Reactive Non-Reactive Body fluid hepatitis B virus surface ant igen detection - 04/28/19 06:02 Confirmatory quantitative serum or plasm a hepatitis B virus surface antigen measurement Non-Reactive Non-Reactive RUBELLA ANTIBODY IGG - 04/28/19 06:02 Interpretation of serum rubella virus IgG antibody belgica t Negative Negative RUBELLA IGG AB 0.83 % 0.00-0.89 Complete blood count (CBC) with automate d white blood cell (WBC) differential - 04/28/19 16:08 Blood leukocytes automated count (number/volume) 7.4 10*3/uL 4.3-11.0 Blood erythrocytes automated count (number/volume) 4.42 10*6/uL 4.35-5.85 Venous blood hemoglobin measurement (mass/volume) 11.1 g/dL 11.5-16.0 Blood hematocrit (volume fraction) 35 % 35-52 Automated erythrocyte mean corpuscular volume 79 [ foz_us] 80-99 Automated erythrocyte mean corpuscular h emoglobin (mass per erythrocyte) 25 pg 25-34 Automated erythrocyte mean corpuscular h emoglobin concentration measurement (mass/volume) 32 g/dL 32-36 Automated erythrocyte distribution width ratio 15. 7 % 10.0- 14.5 Automated blood platelet count (count/volume) 295 10*3/uL 130-400 Automated blood platelet mean volume measurement 11.2 [foz_us] 7.4-10.4 Automated blood neutrophils/100 leukocytes 69 % 42-75 Automated blood lymphocytes/100 leukocytes 24 % 12-44 Blood monocytes/100 leukocytes 6 % 0-12 Automated blood eosinophils/100 leukocytes 1 % 0-10 Automated blood basophils/100 leukocytes 0 % 0-10 Blood neutrophils automated count (number/volume) 5.1 10*3 1.8-7.8 Blood lymphocytes automated count (number/volume) 1.8 10*3 1.0-4.0 Blood monocytes automated count (number/volume) 0. 5 10*3 0.0-1.0 Automated eosinophil count 0.1 10*3/uL 0 .0-0.3 Automated blood basophil count (count/volume) 0.0 10*3/uL 0.0-0.1 Blood type T Indirect antibody screen pa steve - 04/28/19 16:08 WRISTBAND NUMBER [id number] NRG ABO+Rh group ABP NRG Blood group antibody screen NEGATIVE NR G Serum reagin antibody assay (units/volum e) by RPR - 04/28/19 16:08 Serum reagin antibody assay (units/volume) by RPR Non-Reactive Non-Reactive Capillary blood glucose measurement by g lucometer (mass/volume) - 04/28/19 17:51 Capillary blood glucose measurement by glucometer (mas s/volume) 99 mg/dL 70-110 Capillary blood glucose measurement by g lucometer (mass/volume) - 04/28/19 19:16 Capillary blood glucose measurement by glucometer (mas s/volume) 94 mg/dL 70-110 Encounters ACCT No. Visit Date/Time Discharge Status Pt. Type Provider Facility Loc./Unit Complaint [id number] 03/05/2019 10:40:00 03/05/2019 23:59: 59 CLS Outpatient MARGARITA MARTINEZ APRN [facility] [address] [id number] 04/21/2019 11:00:00 Document Registration [id number] 04/14/2019 12:18:00 Document Registration [id number] 04/07/2019 10:20:00 Document Registration [id number] 02/19/2019 09:40:00 Document Registration [id number] 02/05/2019 09:40:00 Document Registration [id number] 04/28/2019 16:04:00 020 13:00:00 DIS Inpatient RUPERTO CROWELL MD [facility] LDRP LABOR [id number] 04/26/2019 10:24:00 020 15:25:00 DIS Outpatient BRANDEN GUDINO DO [facility] WSo CONTRACTIONS [id number] 03/06/2019 17:18:00 020 17:40:00 DIS Outpatient RUPERTO CROWELL MD [facility] STEROID INJECTION [id number] 03/05/2019 12:20:00 020 18:45:00 DIS Outpatient RUPERTO CROWELL MD [facility] WSo C/O CONTRACTIONS,HX OF PRE-TERM LABOR
--- OUTSIDE RECORDS SUMMARY | 2019-04-30 16:58 | XMS REPORT ---
Author Author Tracy DE LA CRUZ [facility] Address [address] [place] [address] Care Team Providers Care Hand Glove Cleaner Name Role Phone JONO LUMA Unavailable PROBLEMS Type Condition ICD9-CM Code MVE89-XB Code Onset Dates Condition S tatus SNOMED Code Problem Screening examination for venereal disease V74.5 Active 348923304 Problem Urinary tract infection, site not specified 599.0 Active 85682978 Problem Leukorrhea, not specified as infective 623.5 Active 220286693 Problem Family history of diabetes mellitus V18.0 Active 874533002 Problem Counseling on other sexually transmitted diseases V65.45 Active 964812895 Problem Other specified disease of hair and hair follicles 704.8 Active 222969957 Problem Headache 784.0 Active 45522818 ALLERGIES No Known Allergies ENCOUNTERS Encounter Location Date Diagnosis [address] [id number] [id number] Apr, Acne vulgaris L70.[address] [id number] [id number] Jul, Sinusitis 473.9 and History of asthma V1 2.69 [facility] [address] [facility] [id number] [address] [place] [phone] May, [facility] [address] [facility] [id number] [address] [place] [phone] May, [facility] [address] [id number] [address] [place] [phone] Jul, [facility] [address] [id number] [address] [place] [phone] Jul, [facility] [address] [id number] [address] [place] [phone] Feb, [facility] [address] [id number] [address] [place] [phone] Feb, [facility] [address] [id number] [address] [place] [phone] Feb, [facility] [address] [id number] [address] [place] [phone] Feb, [facility] [address] [id number] [address] [place] [phone] Feb, [facility] [address] [id number] [address] [place] [phone] Feb, [facility] [address] [id number] [address] [place] [phone] Feb, [facility] [address] [id number] [address] [place] [phone] Feb, [facility] [address] [id number] [address] [place] [phone] June, [facility] [address] [id number] [address] [place] [phone] May, [facility] [address] [id number] [address] [place] [phone] Apr, [facility] [address] [id number] [address] [place] [phone] Dec, [facility] [address] [id number] [address] [place] [phone] Dec, [facility] [address] [id number] [address] [place] [phone] Dec, IMMUNIZATIONS No Known Immunizations SOCIAL HISTORY Never Assessed REASON FOR VISIT mole behine right ear for past month, acne on shoulders, back and chest--PRITI ifshman PLAN OF CARE Activity Details Follow Up prn Reason: VITAL SIGNS Height 62 in 2017-05-07 Weight 180.2 lbs 2017-05-07 Temperature 98.1 degrees Fahrenheit 2017-05-07 Heart Rate 82 bpm 2017-05-07 Respiratory Rate 16 2017-05-07 BMI 32.96 kg/m2 2017-05-07 Blood pressure systolic 104 mmHg 2017-05-07 Blood pressure diastolic 60 mmHg 2017-05-07 MEDICATIONS Medication Instructions Dosage Frequency Start Date End Date Duration S leonard Epiduo 0.1-2.5 % Externally once daily as directed 24h Apr, Aug, 30 days Active ProAir HFA 108 (90 Base) MCG/ACT Inhalation every 4 hrs 2 puffs as ne eded 4h Active RESULTS No Results PROCEDURES No Known procedures INSTRUCTIONS MEDICATIONS ADMINISTERED No Known Medications MEDICAL (GENERAL) HISTORY Type Description Date Medical History asthma
--- OUTSIDE RECORDS SUMMARY | 2019-04-30 16:58 | XMS REPORT ---
Author Author Tracy Duggan Doctor Organization [facility] Address Unknown Phone Unavailable Care Team Providers Care Ornament Setter Name Role Phone Migration, Doctor Unavailable Unavailable PROBLEMS Type Condition ICD9-CM Code [id number] Code Onset Dates Condition S tatus SNOMED Code Problem Screening examination for venereal disease V74.5 Active 553074000 Problem Leukorrhea, not specified as infective 623.5 Active 168936611 Problem Urinary tract infection, site not specified 599.0 Active 63224083 Problem Counseling on other sexually transmitted diseases V65.45 Active 428784561 Problem Family history of diabetes mellitus V18.0 Active 023015567 Problem Headache 784.0 Active 10221762 Problem Other specified disease of hair and hair follicles 704.8 Active 543739851 ALLERGIES No Information ENCOUNTERS Encounter Location Date Diagnosis [address] [id number] [id number] Apr, Acne vulgaris L70.[address] [id number] [id number] Jul, Sinusitis 473.9 and History of asthma V1 2.69 [facility] [address] [facility] [id number] [address] [place] [phone] May, [facility] [address] [facility] [id number] [address] [place] [phone] May, [facility] [address] [facility] [id number] [address] [place] [phone] Jul, [facility] [address] [facility] [id number] [address] [place] [phone] Jul, [facility] [address] [facility] [id number] [address] [place] [phone] Feb, [facility] [address] [facility] [id number] [address] [place] [phone] Feb, [facility] [address] [id number] [address] [place] [phone] Feb, [facility] [address] [id number] [address] [place] [phone] Feb, [facility] [address] [id number] [address] [place] [phone] Feb, [facility] [address] [id number] [address] [place] [phone] Feb, [facility] [address] [id number] [address] [place] [phone] Feb, [facility] [address] [id number] [address] [place] [phone] Feb, [facility] [address] [id number] [address] [place] [phone] June, [facility] [address] [id number] [address] [place] [phone] May, [facility] [address] [id number] [address] [place] [phone] Apr, [facility] [address] [id number] [address] [place] [phone] Dec, [facility] [address] [id number] [address] [place] [phone] Dec, [facility] [address] [id number] [address] [place] [phone] Dec, IMMUNIZATIONS No Known Immunizations SOCIAL HISTORY Never Assessed [place] FOR [place] [place] VITAL SIGNS MEDICATIONS Medication Instructions Dosage Frequency Start Date End Date Duration S tatus Keflex 500 mg take 2 capsule by Oral route every 12 ho urs for 10 days Jul, Active Bactrim DS 800-160 mg take 1 tablet by O ral route every 12 hours for 3 days with food Feb, Active RESULTS No Results PROCEDURES No Known procedures INSTRUCTIONS MEDICATIONS ADMINISTERED No Known Medications MEDICAL (GENERAL) HISTORY Type Description Date Medical History asthma
--- OUTSIDE RECORDS SUMMARY | 2019-04-30 16:58 | XMS REPORT ---
Author Author Tracy ANTONIO Organization [facility] Address [address] [place] [address] Care Team Providers Care Customer Engineer Name Role Phone MITALI ANTONIO Unavailable PROBLEMS Type Condition ICD9-CM Code RUE15-VD Code Onset Dates Condition S tatus SNOMED Code Problem Screening examination for venereal disease V74.5 Active 579989558 Problem Leukorrhea, not specified as infective 623.5 Active 045336842 Problem Urinary tract infection, site not specified 599.0 Active 04327111 Problem Counseling on other sexually transmitted diseases V65.45 Active 961337573 Problem Family history of diabetes mellitus V18.0 Active 964515478 Problem Headache 784.0 Active 09043931 Problem Other specified disease of hair and hair follicles 704.8 Active 314876104 ALLERGIES No Information ENCOUNTERS Encounter Location Date Diagnosis [address] [id number] [id number] Apr, Acne vulgaris L70.[address] [id number] [id number] Jul, 2014 Sinusitis 473.9 and History of asthma V1 2.69 [facility] [address] [place] [id number] [address] [place] [phone] May, [facility] [address] [facility] [id number] [address] [place] [phone] May, [facility] [address] [place] [id number] [address] [place] [phone] Jul, [facility] [address] [place] [id number] [address] [place] [phone] Jul, [facility] [address] [facility] [id number] [address] [place] [phone] Feb, [facility] [address] [id number] [address] [place] [phone] Feb, [facility] [address] [id number] [address] [place] [phone] Feb, [facility] [address] [id number] [address] [place] [phone] Feb, [facility] [address] [id number] [address] [place] [phone] Feb, [facility] [address] [id number] [address] [place] [phone] Feb, [facility] [address] [id number] [address] [place] [phone] Feb, [facility] [address] [id number] [address] [place] [phone] Feb, [facility] [address] [id number] [address] [place] [phone] June, [facility] [address] [id number] [address] [place] [phone] May, [facility] [address] [id number] [address] [place] [phone] Apr, [facility] [address] [id number] [address] [place] [phone] Dec, [facility] [address] [id number] [address] [place] [phone] Dec, [facility] [address] [id number] [address] [place] [phone] Dec, IMMUNIZATIONS No Known Immunizations SOCIAL HISTORY Never Assessed REASON FOR VISIT PLAN OF CARE VITAL SIGNS MEDICATIONS No Known Medications RESULTS No Results PROCEDURES No Known procedures INSTRUCTIONS MEDICATIONS ADMINISTERED No Known Medications MEDICAL (GENERAL) HISTORY Type Description Date Medical History asthma
== END 2019-04-30 13:00 | disposition home or self-care (01) | DRG 788 ==
LOC: LDRP 16:04
PROVIDERS: ADMIT Family Medicine; ATTEND Family Medicine
PROC: 10D00Z1 Extraction of Products of Conception, Low, Open Approach (ICD-10-PCS; principal; 2019-04-28 19:40)
DX: O69.0XX0 Labor and delivery complicated by prolapse of cord, not applicable or unspecified (principal); O99.52 Diseases of the respiratory system complicating childbirth; J45.909 Unspecified asthma, uncomplicated; O24.425 Gestational diabetes mellitus in childbirth, controlled by oral hypoglycemic drugs; O99.344 Other mental disorders complicating childbirth; F32.9 Major depressive disorder, single episode, unspecified; Z3A.38 38 weeks gestation of pregnancy; Z37.0 Single live birth; Z79.84 Long term (current) use of oral hypoglycemic drugs
CPT/HCPCS: 36415; 74018; 82962; 85025; 86703; 86762; 86780; 86850; 86900; 86901; 87340

== ENCOUNTER 2019-10-04 05:53 | Outpatient (CLI) | payer OTHER ==
[~2019-10-04] VITALS: Ht 154.9 cm; Wt 89.5 kg
[~2019-10-04 05:53] MED LIST changes: +DCS100C PO; +IBUP-1780 PO; +OXYC1TAB12 PO
[2019-10-04] MEDS ORDERED: CETI10TA21 PO (15:56)
[2019-10-08] MEDS ORDERED: HYDR-4226 PO (09:47)
== END 2019-10-04 15:58 | disposition home or self-care (01) ==
LOC: PREOP 05:53
PROVIDERS: ATTEND Surgery
DX: Z01.818 Encounter for other preprocedural examination (principal)

== ENCOUNTER → 2019-10-08 | Day surgery (SDC) | payer OTHER ==
[2019-10-08] VITALS (12 sets, daily range): BP systolic 103–122; BP diastolic 56–82
[~2019-10-08] VITALS: Ht 154.9 cm; Wt 89.5 kg
[~2019-10-08] MED LIST changes: +BUP/EPI 0.5% 1:200,000 (MARCAINE) 10ML VIAL IJ ONE; +CETI10TA21 PO; +GLYCOPYRROLATE 0.2 MG/ML (ROBINUL) 2 ML VIAL ONE; +HYDR-4226 PO; +HYDROcodone/APAP 5 MG/325 MG (LORTAB) TAB ONE; +HYDROcodone/APAP 5 MG/325 MG (LORTAB) TAB PO ONE; +HYDROmorphone 2 MG/ML VIAL (DILAUDID) ONE; +IOPAMIDOL 61% 30 ML (ISOVUE 300) VIAL ONE; +LIDOCAINE PF 2% 5 ML (XYLOCAINE) VIAL ONE; +MEPERIDINE (DEMEROL) INJ 50 MG/ML IVP ONE; +MIDAZOLAM 2 MG/2 ML (VERSED) VIAL IV ONE; +MIDAZOLAM 2 MG/2 ML (VERSED) VIAL ONE; +NEOSTIGMINE 3 MG/3 ML VIAL ONE; +ONDANSETRON 4 MG/2 ML (SDV) Z0FRAN IVP PRN; +ONDANSETRON 4 MG/2 ML (SDV) Z0FRAN ONE; +PROMETHAZINE INJ 25 MG/ML (PHENERGAN) AMP IVP ONE; +ROCURONIUM 10 MG/ML 5 ML SYRINGE IV ONE; +SEVOFLURANE (ULTANE) 15 ML INHAL SOLN ONE; +ceFAZolin INJECTION 1,000 MG in WATER (STERILE) FOR INJECTION 10 ML IV ONE; +fentaNYL INJECTION 100 MCG/2 ML AMP IVP ONE; +fentaNYL INJECTION 100 MCG/2 ML AMP ONE; +proPOfol 200 MG/20 ML (DIPRIVAN) VIAL IV ONE
[2019-10-08] MEDS: LACTATED RINGERS 1,000 ML IV PRN ×2 (07:57→09:50)
[2019-10-08 08:06] LABS: BASOPHILS % (AUTO) 1 % (0-10); EOSINOPHILS # (AUTO) 0.2 10^3/uL (0.0-0.3); EOSINOPHILS % (AUTO) 4 % (0-10); HEMATOCRIT 41 % (35-52); HEMOGLOBIN 13.5 G/DL (11.5-16.0); LYMPHOCYTES # (AUTO) 2.2 X 10^3 (1.0-4.0); LYMPHOCYTES % (AUTO) 36 % (12-44); MEAN CORPUSCULAR HEMOGLOBIN 27 PG (25-34); MEAN CORPUSCULAR HGB CONC 33 G/DL (32-36); MEAN CORPUSCULAR VOLUME 83 FL (80-99); MEAN PLATELET VOLUME 10.1 FL (7.4-10.4); MONOCYTES # (AUTO) 0.4 X 10^3 (0.0-1.0); MONOCYTES % (AUTO) 6 % (0-12); NEUTROPHILS # (AUTO) 3.2 X 10^3 (1.8-7.8); NEUTROPHILS % (AUTO) 53 % (42-75); PLATELET COUNT 297 10^3/uL (130-400); RED CELL DISTRIBUTION WIDTH 14.3 % (10.0-14.5); WHITE BLOOD COUNT 6.1 10^3/uL (4.3-11.0)
--- NOTE | 2019-10-08 08:50 | Progress Note-Pre Operative ---
Pre-Operative Progress Note H&P Reviewed The H&P was reviewed, patient examined and no changes noted. Date Seen by Provider: Oct 08, 2019 Time Seen by Provider: 08:50 Date H&P Reviewed: Oct 08, 2019 Time H&P Reviewed: 08:50 Pre-Operative Diagnosis: RUQ ABD PAIN, SYMPTOMATIC CHOLELITHIASIS ODELL PRADO DO Oct 08, 2019 08:50
--- NOTE | 2019-10-08 09:46 | Progress Note-Post Operative ---
Post-Operative Progess Note Surgeon (s)/Bonding Machine Tender (s) Surgeon KATJA LOZANO DO Bonding Machine Tender: Fili Pre-Operative Diagnosis RUQ ABD PAIN, SYMPTOMATIC CHOLELITHIASIS Post-Operative Diagnosis Same Procedure & Operative Findings Date of Procedure 10/08/19 Procedure Performed/Findings PROCEDURE: Laparoscopic cholecystectomy with intraoperative cholangiogram. COMPLICATIONS: None. PROCEDURE: The patient was taken to the operating suite and was prepped and draped in sterile fashion. A surgical pause was performed. Just superior to the umbilicus, a 12 mm incision was made. Dissection was taken down to the fascia, which was then scored and grasped with a Justina and the abdomen was then entered. A 0 Vicryl suture was placed in a pgldih-uc-tssjd fashion and a Henson trocar was placed and secured. Pneumoperitoneum was achieved. A 5mm trochar place in the subxyphoid and 2 in the right upper quadrant. The gallbladder was then grasped and elevated. There were adhesions to the gallbladder; fat and duodenum, this indicates previous gallbladder attacks. These were carefully taken down with the bovie electrocautery and blunt dissection. Then started dissectin out the cystic duct and cystic artery. Clip was placed on the distal portion of the cystic duct which was then partially transected. An arrow catheter was inserted into the duct. The cholangiogram was then performed. No filing defects and contrast made its way into the duodenum. Catheter removed. Clips were placed on proximal portion of the cystic duct and then the duct was then transected. Clips were placed along the proximal and distal portion of the cystic artery which was then transected. Hook cautery was used to dissect the gallbladder from the gallbladder fossa achieving hemostasis. The gallbladder was placed in an Endobag and removed through the 12 mm trocar site. The abdomen was then reinspected. Copious amounts of irrigation were used to irrigate the abdomen and there were no signs of active bleeding. Hemostasis had been achieved. The 12 mm fascial defect was then closed with 0 Vicryl suture that had been placed in a akhazj-ct-pkqwk fashion. The abdomen was then desufflated, the trocars were removed. The abdomen was then washed and dried. The skin was then closed using 4-0 Monocryl in a subcuticular fashion. The abdomen was washed and dried and Skin Affix was place over incisions. Patient tolerated the procedure well without any complications and was taken to the recovery room in stable condition. Dr. Penn assisted on this case helping to make incisions, close incisions, identify anatomy and hold anatomy out of the way. Anesthesia Type GET Estimated Blood Loss Estimated blood loss (mL): scant Specimens/Packing Specimens Removed GB and contents KATJA LOZANO DO Oct 08, 2019 09:46
--- NOTE | 2019-10-08 09:48 | Discharge Inst-Surgical ---
Discharge Inst-Surgical Depart Medication/Instructions New, Converted or Re-Newed RX: RX Given to Pt/Family Patient Instructions Follow up Appt: Make appointment for 1 week. [phone] Instructions: No lifting greater than 20 pounds. No strenuous activity. May shower in 24 hours, no tub bath or soaking. Use incentive spirometer at home as directed. No Smoking Skin/Wound Care: May remove bandages in am. You need to leave the Dermabond on incision it will fall off on it's own. Symptoms to Report: Appetite Changes, Extremity Discoloration, Numbness/Tingling, Swelling Increased, Bleeding Excessive, Eyesight Changes, Pain Increased, Urine Color Change, Constipation(Persistent), Fever over 101 degree F, Pain/Pressure in chest, Urinating Difficulty, Cough Up/Vomit Blood, Heart Beat Irreg/Pounding, Pain/Pressure in jaw, Cramps in feet or legs, Lightheadedness, Pain/Pressure in shoulder, Diarrhea(Persistent), Memory Changes Suddenly, Questions/Concerns, Weight gain consecutive days, Dizziness/Fainting, Nausea/Vomiting, Shortness of Breath, Weight gain over 2 pounds If questions or concerns contact your physician Or seek help at emergency department. Activity Activity as Tolerated: Yes Activity Instructions: Avoid Stress to Incision Driving Instructions: No Driving/Refer to Diet Discharge Diet: Avoid Fatty Foods, Low Fat/Low Cholesterol Diet After 24 Hours: Clear Liquid if Nauseous If Any Problems/Questions/Issu: Contact Your Physician, Go to Emergency Room Skin/Wound Care Infection Signs and Symptoms: Increased Redness, Foul Odor of Wound, Increased Drainage, Skin Itchy or Has a Rash, Increased Swelling, Temperature Above 101 F Wound Care Comment: heating pad to shoulder or neck tonight for pain Bathing Instructions: Shower Operative Area Clean and Dry: Keep Incision Clean/Dry Stitches/Waylon/Dermabond Dis: Dermabond Ice Pack: Ice On and Off Site (as needed for pain at incision sites) KATJA LOZANO DO Oct 08, 2019 09:48
--- NOTE | 2019-10-08 10:13 | Diagnostic Imaging Report ---
INDICATION: Fluoroscopy for intraoperative cholangiogram. Fluoroscopy was provided in the OR during intraoperative cholangiogram. 15 seconds of fluoroscopic time was utilized. Images demonstrate contrast being injected via the cystic duct remnant. Extrahepatic duct is without evidence of filling defect. There is flow of contrast into the duodenum. IMPRESSION: Fluoroscopy for intraoperative cholangiogram. Dictated by: Dictated on workstation # [id number]
--- NOTE | 2019-10-08 11:26 | Anesthesia-General Post-Op ---
General Patient Condition Mental Status/LOC: Same as Preop Cardiovascular: Satisfactory Nausea/Vomiting: Absent Respiratory: Satisfactory Pain: Controlled Complications: Absent Post Op Complications Complications None Follow Up Care/Instructions Patient Instructions None needed. Anesthesia/Patient Condition Patient Condition Patient is doing well, no complaints, stable vital signs, no apparent adverse anesthesia problems. No complications reported per nursing. JOSE M DISLA CRNA Oct 08, 2019 11:26
== END | disposition home or self-care (01) ==
LOC: SDC 07:29
PROVIDERS: ATTEND Surgery
DX: K80.10 Calculus of gallbladder with chronic cholecystitis without obstruction (principal); J30.2 Other seasonal allergic rhinitis; K21.9 Gastro-esophageal reflux disease without esophagitis; Z11.2 Encounter for screening for other bacterial diseases
CPT/HCPCS: 36415; 76000; 84703; 85025; 87081